=== PATIENT | male | born 1975 | race Caucasian/White ===

== ENCOUNTER 2017-02-07 10:19 | Inpatient (IN) | payer BC ==
[~2017-02-07] VITALS: Ht 193 cm; Wt 158.0 kg
[2017-02-07] MEDS ORDERED: ONDANSETRON PF 4 MG/2 ML VIAL. IV ONE ×2 (11:00→11:30)
[2017-02-07] MEDS ORDERED: PROMETHAZINE 12.5 MG in IV NORMAL SALINE 50ML 50 ML IV PRN (11:00)
[2017-02-07] MEDS ORDERED: KETOROLAC 30 MG/ML VIAL. IV ONE ×2 (11:00→11:30)
--- NOTE | 2017-02-07 11:01 | PHYS DOC ---
General Chief Complaint: HEADACHE Stated Complaint: HEADACHE Time Seen by MD: 10:44 Source: patient Exam Limitations: no limitations Problems: History of Present Illness Initial Comments Patient is a 41-year-old male who comes in the ED complaining of headache nausea vomiting. Patient states that he had a headache which has been worsening over the past few weeks. He states it seems wall started when he started taking metoprolol 50 mg and a ezetimibe 10 mg back in November. He began having intermittent headaches in the morning which would resolve quickly once he got up and active. One week ago he decided that his headaches were due to these medications and he stopped them abruptly, his headache symptoms have increased dramatically since that time. He's had nausea vomiting and by mouth intolerance this past week and the past few days headache is much worse when he is standing he also becomes dizzy and has to sit down. He has history of arachnoid cyst with shunt placement 20 years ago. He denies any prior headaches due to this. He has no history of migraines there is no associated aura he does have photophobia no focal neurologic deficits. He says the headache she's been having recently resolve if he sleeps they usually last about 6 hours the current headache has been lasting 12 hours. He says the headache started right behind his forehead and are global throbbing in nature. Patient has no history of tick bites no rash no neck stiffness and no fever chills or body aches. No recent head trauma. Timing/Duration: 1 week (worse this past week but symptom onset coincides with initiation of new meds), changing over time (9.12 her white count was 16.8) Severity: severe Modifying Factors: improves with medication, worse with movement, improves with rest Associated Symptoms: headaches, nausea/vomiting, other Allergies: Coded Allergies: No Known Drug Allergies (Unverified , 02/07/17) Past Medical History Medical History: other (hypertension, hyperlipidemia, arachnoid cyst status post shunt placement 20 years ago) Surgical History: other Social History Smoker: non-smoker Alcohol: none Drugs: marijuana Review of Systems Constitutional: denies chills, denies diaphoresis, denies fever, malaise EENTM: see HPI, denies eye pain, denies ear pain, denies ear discharge, denies nose pain, denies nose congestion, denies throat pain, denies throat swelling Respiratory: denies cough, denies shortness of breath, denies wheezing Cardiovascular: denies chest pain, denies palpitations, denies syncope Gastrointestinal: denies abdominal pain, denies diarrhea, nausea, vomiting Musculoskeletal: denies back pain, denies joint swelling, denies muscle pain, denies muscle stiffness, denies neck pain Psychiatric/Neurological: headache, denies numbness, denies paresthesia, denies pre-existing deficit, denies seizure, denies tingling, denies weakness Hematologic/Lymphatic: denies blood clots, denies easy bleeding, denies easy bruising Physical Exam General Appearance: mild distress, obese Eyes: bilateral eye normal inspection, bilateral eye PERRL, bilateral eye EOMI Ear, Nose, Throat: hearing grossly normal, normal ENT inspection (dry membranes ), normal pharynx Neck: non-tender, full range of motion, supple, other (no nuchal rigidity or meningeal signs) Respiratory: normal breath sounds, no respiratory distress Cardiovascular: normal peripheral pulses, bradycardia, other (2+ pitting lower extremity edema) Gastrointestinal: normal bowel sounds, non tender, soft, no organomegaly Back: normal inspection, no CVA tenderness, no vertebral tenderness Extremities: normal range of motion, non-tender, normal inspection Neurologic/Psychiatric: applications architect II-XII nml as tested, no motor/sensory deficits, alert, normal mood/affect, oriented x 3 Skin: normal color, warm/dry Orders, Labs, Meds EKG: Sinus bradycardia at 49 bpm, no STEMI changes. Interpreted by Dr. Hensley. PATIENT: PAUL MCKEON ACCOUNT: [id number] : 1975 LOCATION: ER AGE: 41 SEX: M EXAM STATUS: REG ER ORD. PHYSICIAN: RENAY HENSLEY DO REASON: [place], n/v, h/o arachnoid cyst/shunt PROCEDURE: CT HEAD WO CONTRAST Clinical indications: Headache with nausea and vomiting. History of shunt placement for arachnoid cyst. Comparison: None available at this facility.. Technique: Noncontrast axial cross sectional scanning of the head was performed. Findings: No acute intracranial hemorrhage or midline shift or hydrocephalus is seen. An arachnoid cyst of the inferior anterior aspect of the left middle cranial fossa is seen. This cyst measures 28 mm in greatest transverse dimension and 20 mm in greatest AP dimension. Shunt catheter and tip are located just posterior and superior to the arachnoid cyst. No other extra-axial fluid collection is seen. No focal hypodense area or sulci effacement is seen to indicate an acute infarct or edema radiographically. No skull fracture or pneumocephalus is seen. No opacification of the mastoid sinuses or the paranasal sinuses is seen. The maxillary sinuses are not completely seen in this study. Impression: No acute intracranial abnormality is seen. Arachnoid cyst of the left middle cranial fossa. PQRS Compliance Statement: One or more of the following individualized dose reduction techniques were utilized for this examination: 1. Automated exposure control 2. Adjustment of the mA and/or kV according to patient size 3. Use of iterative reconstruction technique DICTATED AND SIGNED BY: FLAKITA KRISHNAN MD DATE: 02/07/171108 CC: HAMLET KIM MD; RENAY HENSLEY DO ~ PATIENT: APUL MCKEON ACCOUNT: [id number] : 1975 LOCATION: ER AGE: 41 SEX: M EXAM STATUS: REG ER ORD. PHYSICIAN: RENAY HENSLEY DO REASON: HTN PROCEDURE: PORTABLE CHEST 1V Portable AP upright view CXR: Clinical indications: Hypertension. Comparison: None available. Findings: No acute lung infiltrate or pleural effusion or pulmonary edema or lung mass or pneumothorax is seen. The heart size, pulmonary vasculature, mediastinum and both jyoti are unremarkable. Impression: No acute radiographic abnormality is seen. DICTATED AND SIGNED BY: FLAKITA KRISHNAN MD DATE: 02/07/17 CC: HAMLET KIM MD; RENAY HENSLEY DO ~ Labs and urine studies unremarkable Through his ED course the patient received intravenous Zofran 4 mg, Pepcid 20 mg , Toradol 30 mg, and multiple doses Dilaudid intravenously. His nausea resolved with Zofran, his pain reduced from a level 10 to 4 through his ED course. Blood pressure improved with analgesia, with manual pressure 156/98 and heart rate 54. I discussed the patient with Dr. Kim and after thorough discussion of the patient's history, presentation, and ED course he recommends inpatient telemetry admission to monitor her labs and control pain. Neurology consult for intractable headache as well as cardiology consultation regarding malignant hypertension and bradycardia also requested. The patient is agreeable and wants transferred from the department at 1629 in stable condition. Impressions: Intractable headache Malignant hypertension Sinus bradycardia Nausea vomiting Departure Time of Disposition: 16:30 Disposition: 09 ADMITTED INPATIENT Condition: STABLE RENAY HENSLEY DO Feb 07, 2017 11:01
[2017-02-07 11:11] LABS: BASO # 0.1 x10^3/uL (0.0-0.2); BASO % 1 % (0-3); EOS % 0 % (0-3); HEMATOCRIT 45.4 % (39.0-53.0); HEMOGLOBIN 15.7 g/dL (13.0-17.5); LYMPH # 1.3 x10^3/uL (1.0-4.8); LYMPH % 13 % (24-48); MEAN CORPUSCULAR HEMOGLOBIN 32 pg (25-35); MEAN CORPUSCULAR HGB CONC 35 g/dL (31-37); MEAN CORPUSCULAR VOLUME 93 fL (79-100); MONO # 0.6 x10^3/uL (0.0-1.1); MONO % 6 % (0-9); NEUT # 7.9 x10^3uL (1.8-7.7); NEUT % 80 % (31-73); PLATELET COUNT 315 x10^3/uL (140-400); RED CELL DISTRIBUTION WIDTH 13.8 % (11.5-14.5); WHITE BLOOD COUNT 9.9 x10^3/uL (4.0-11.0)
[2017-02-07] MEDS: HYDROmorphone PF 1 MG/ML DISP.SYRIN IV/SQ PRN ×4 (11:13→14:36)
--- NOTE | 2017-02-07 11:17 | RAD ---
Clinical indications: Headache with nausea and vomiting. History of shunt placement for arachnoid cyst. Comparison: None available at this facility.. Technique: Noncontrast axial cross sectional scanning of the head was performed. Findings: No acute intracranial hemorrhage or midline shift or hydrocephalus is seen. An arachnoid cyst of the inferior anterior aspect of the left middle cranial fossa is seen. This cyst measures 28 mm in greatest transverse dimension and 20 mm in greatest AP dimension. Shunt catheter and tip are located just posterior and superior to the arachnoid cyst. No other extra-axial fluid collection is seen. No focal hypodense area or sulci effacement is seen to indicate an acute infarct or edema radiographically. No skull fracture or pneumocephalus is seen. No opacification of the mastoid sinuses or the paranasal sinuses is seen. The maxillary sinuses are not completely seen in this study. Impression: No acute intracranial abnormality is seen. Arachnoid cyst of the left middle cranial fossa. PQRS Compliance Statement: One or more of the following individualized dose reduction techniques were utilized for this examination: 1. Automated exposure control 2. Adjustment of the mA and/or kV according to patient size 3. Use of iterative reconstruction technique
[2017-02-07 11:20] LABS: CALCIUM 9.5 mg/dL (8.5-10.1); GFR 81.9; POTASSIUM 3.9 mmol/L (3.5-5.1)
[2017-02-07] MEDS ORDERED: FAMOTIDINE 20 MG/2 ML VIAL IVP ONE (11:30)
--- NOTE | 2017-02-07 12:32 | RAD ---
Portable AP upright view CXR: Clinical indications: Hypertension. Comparison: None available. Findings: No acute lung infiltrate or pleural effusion or pulmonary edema or lung mass or pneumothorax is seen. The heart size, pulmonary vasculature, mediastinum and both jyoti are unremarkable. Impression: No acute radiographic abnormality is seen.
[2017-02-07] MEDS ORDERED: METOPROLOL TARTRATE 5 MG/5 ML VIAL. IV ONE (12:40)
[2017-02-07] MEDS ORDERED: ASPIRIN 81 MG TAB.CHEW PO ONE (12:40)
[2017-02-07 12:47] LABS: CREATINE KINASE 68 U/L (39-308); LIPASE 86 U/L (73-393)
[2017-02-07 13:20] LABS: BARBITURATES NEG (NEG); BENZODIAZEPINES NEG (NEG); CANNABINOIDS POS (NEG); COCAINE NEG (NEG); METHADONE NEG (NEG); OPIATES POS (NEG); PHENCYCLIDINE NEG (NEG)
[2017-02-07 13:21] LABS: AMPHETAMINE/METHAMPHETAMINE NEG (NEG)
[2017-02-07 13:27] LABS: AMORPHOUS SEDIMENT,UR PRESENT /HPF; BACTERIA,URINE 0 /HPF (0-FEW); BILIRUBIN,URINE SMALL (NEG); CLARITY,URINE HAZY; COLOR,URINE AMBER; GLUCOSE,URINE NEG (NEG); NITRITE,URINE NEG (NEG); UROBILINOGEN,URINE 0.2 mg/dL (0.2 mg/dL); WBC,URINE RARE /HPF (0-4)
--- NOTE | 2017-02-07 13:57 | EKG ---
[address] [address] Test Date: 2017-02-07 Test Time: 12:21:39 Pat Name: PAUL MCKEON Department: Room: Gender: M Technology Director: QUIQUE : 1975 Requested By: RENAY HENSLEY Order Number: [id number] Reading MD: Aron Snowden MD Measurements Intervals [place] Rate: 49 P: 0 IA: 154 QRS: 2 QRSD: 86 T: 26 QT: 432 QTc: 393 Interpretive Statements SINUS BRADYCARDIA Electronically Signed On 02-10-2017 10:53:19 RO[address] MACHINE OPERATOR by Aron Snowden MD
[2017-02-07] MEDS ORDERED: NITROGLYCERIN SUBLINGUAL 0.4 MG BOTTLE OF 25. SL PRN (15:00)
[2017-02-07] MEDS ORDERED: ACETAMINOPHEN 325 MG TABLET PO PRN (15:00)
[2017-02-07 16:57] VITALS: BP 171/94
[2017-02-07] MEDS ORDERED: ENOXAPARIN 30 MG/0.3 ML DISP.SYRIN. SQ SCH ×2 (17:00→19:00)
[2017-02-07] MEDS: ONDANSETRON PF 4 MG/2 ML VIAL. IV PRN (17:04)
[2017-02-07] MEDS: MORPHINE SULFATE 4 MG/ML DISP.SYRIN. IV PRN ×2 (17:04→23:34)
[2017-02-07 17:42] VITALS: BP 171/94
--- NOTE | 2017-02-07 17:47 | NUR ---
The patient, PAUL MCKEON, 41 y/o, M admitted by HAMLET IKM MD, was given written information regarding hospital policies, unit procedures and contact persons. Valuables were checked and admission assessment performed.
[2017-02-07] MEDS: IV NORMAL SALINE 1,000ML 1,000 ML IV SCH (18:13)
[2017-02-07] MEDS ORDERED: ONDANSETRON ODT 4 MG TAB.RAPDIS PO PRN (18:30)
[2017-02-07] MEDS ORDERED: diazePAM 5 MG TABLET PO PRN (18:30)
[2017-02-07] MEDS ORDERED: hydrALAZINE 20 MG/ML VIAL. IV PRN (18:30)
[2017-02-07] MEDS ORDERED: KETOROLAC 15 MG/ML VIAL. IV PRN (18:30)
[2017-02-07 19:16] VITALS: BP 165/88
[2017-02-07] MEDS: amLODIPine BESYLATE 5 MG TABLET PO SCH (19:37)
[2017-02-07 23:01] VITALS: BP 164/93
[2017-02-08] VITALS (22 sets, daily range): BP systolic 133–199; BP diastolic 78–126
[2017-02-08 02:04] LABS: BASO % 0 % (0-3); EOS % 0 % (0-3); LYMPH # 1.3 x10^3/uL (1.0-4.8); LYMPH % 14 % (24-48); MEAN CORPUSCULAR HEMOGLOBIN 32 pg (25-35); MEAN CORPUSCULAR HGB CONC 34 g/dL (31-37); MEAN CORPUSCULAR VOLUME 93 fL (79-100); MONO # 0.7 x10^3/uL (0.0-1.1); MONO % 8 % (0-9); NEUT % 77 % (31-73); PLATELET COUNT 269 x10^3/uL (140-400); RED BLOOD COUNT 4.43 x10^6/uL (4.30-5.70); RED CELL DISTRIBUTION WIDTH 14.2 % (11.5-14.5)
[2017-02-08 02:22] LABS: ALBUMIN 3.1 g/dL (3.4-5.0); ALBUMIN/GLOBULIN RATIO 0.8 (1.0-1.7); CALCIUM 8.5 mg/dL (8.5-10.1); GFR 81.9; POTASSIUM 4.3 mmol/L (3.5-5.1); TOTAL BILIRUBIN 0.4 mg/dL (0.2-1.0); TOTAL PROTEIN 7.2 g/dL (6.4-8.2)
[2017-02-08] MEDS: IV NORMAL SALINE 1,000ML 1,000 ML IV SCH ×2 (03:27→11:02)
[2017-02-08] MEDS: ONDANSETRON PF 4 MG/2 ML VIAL. IV PRN ×2 (06:13→09:52)
[2017-02-08] MEDS ORDERED: METOPROLOL SUCC 24HR ER 50 MG TAB.ER.24H. PO SCH ×2 (09:00→21:00)
[2017-02-08] MEDS: amLODIPine BESYLATE 5 MG TABLET PO SCH (09:04)
--- NOTE | 2017-02-08 09:30 | NUR ---
Pt up to the bathroom vomiting, medication given. Addendum: 02/08/17 at 1512 by GRANT MENDOZA RN Amended: Links added.
[2017-02-08] MEDS: MORPHINE SULFATE 4 MG/ML DISP.SYRIN. IV PRN (09:52)
--- NOTE | 2017-02-08 10:30 | NUR ---
Dr. Sheikh notified of patients BP, Notified of hydralazine given. Orders given for scheduled hydralazine. see emar Addendum: 02/08/17 at 1113 by GRANT MENDOZA RN Amended: Links added.
--- NOTE | 2017-02-08 11:00 | NUR ---
Pt sitting on edge of bed, Pt c/o Headache rates pain 8/10.
--- NOTE | 2017-02-08 11:15 | NUR ---
Pt states she is still very Nauseated with a headache rating /10. Medication IV given. Addendum: 02/08/17 at 1514 by GRANT MENDOZA RN Amended: Links added.
[2017-02-08] MEDS: ENOXAPARIN 40 MG/0.4 ML DISP.SYRIN. SQ SCH ×2 (11:23→20:29)
--- NOTE | 2017-02-08 12:42 | NUR ---
Dr. Sheikh here to see pt, in room discussing BP options with patient. Addendum: 02/08/17 at 1508 by GRANT MENDOZA RN Amended: Links added.
[2017-02-08] MEDS ORDERED: ZOLPIDEM 5 MG TABLET. PO PRN (13:00)
[2017-02-08] MEDS ORDERED: CHLORTHALIDONE 25 MG TABLET PO SCH (13:00)
[2017-02-08] MEDS ORDERED: DEXAMETHASONE SOD PHOS 4 MG/ML VIAL IV ONE (13:00)
--- NOTE | 2017-02-08 13:00 | NUR ---
Pt sitting on the edge of the bed. Pt c/o head pain. rates pain 11/07 Addendum: 02/08/17 at 1507 by GRANT MENDOZA RN Amended: Links added.
[2017-02-08] MEDS: hydrALAZINE 10 MG TABLET PO SCH ×2 (13:33→21:00)
--- NOTE | 2017-02-08 14:50 | NUR ---
Pt continues to rate pain 11/07 with a headache, Pt refuses any pain medication at this time. Pt states " I am really worried about what is going on" Pt agreed to take Valium for anxiety. Addendum: 02/08/17 at 1502 by GRANT MENDOZA RN Amended: Links added.
--- NOTE | 2017-02-08 15:00 | NUR ---
Pt pushed call light on bed. RN entered the room pt sitting on the floor between bed and bathroom with IV laying over on him. Pt denies any pain from fall. Pt back to bed with RN assist. VS taken. Addendum: 02/08/17 at 1507 by GRANT MENDOZA RN Amended: Links added.
--- NOTE | 2017-02-08 15:06 | NUR ---
Consult called to Dr Bunch for intractable headache. Notified of high BPs, result of CT scan, medications given, other symptoms and patients fall. Dr Bunch suggests IV drip for BP control in ICU. This RN notified ALFONSO Cuevas caring for patient and she will notify Dr Sheikh.
[2017-02-08] MEDS ORDERED: LABETALOL 20 MG/4 ML DISP.SYRIN. IVP PRN (15:15)
--- NOTE | 2017-02-08 15:25 | NUR ---
Pt to ICU [address] [facility] room 103 via WC at this time.
--- NOTE | 2017-02-08 15:31 | HP ---
ADMIT DATE: 02/07/2017 HISTORY OF PRESENT ILLNESS: A 41-year-old male with history of a shunt because of an arachnoid cyst in his brain came, the last few weeks he has been having problems with severe intermittent headache unrelieved with numerous medications from [id number] as well as IM medications provided in the office. The patient notes the headaches feel like a throbbing pressure sensation in the frontal area of his brain. He has severe dizziness with it. The patient had an arachnoid cyst with a shunt placement 20 years ago. He denies prior headaches and this is really new for him. He has no history of migraines. He does have some blurred vision and photophobia noted with this. He notes, he says that sleeps seems to help, but when he wakes up, he still has this problem, which is behind his forehead and frontal lobe area throbbing in nature. The patient also has no neck rigidity. He denies any fever or chills. Does have some nausea, but no vomiting. PAST MEDICAL HISTORY: Other than hypertension basically past medical history for arachnoid cyst frontal lobe in 1994, shunt placement for a cyst in 1994. MEDICATIONS: Colchicine 0.6 mg p.r.n. for gout, metoprolol 25 mg b.i.d. SOCIAL HISTORY: Denies smoking or alcohol use. FAMILY HISTORY: Nonremarkable. ALLERGIES: The patient has no known drug allergies. REVIEW OF SYSTEMS: Positive for generalized fatigue, malaise, blurred vision, double vision. Denies shortness of breath. Denies chest pain. Does have some nausea and possible vomiting. Denies problems with his joints. No insect bites. Otherwise, headache as noted with pressure sensation, throbbing sensation and blurred vision. PHYSICAL EXAMINATION: GENERAL: This is a white male in moderate amount of obesity. VITAL SIGNS: Blood pressure is elevated 160/90, respiratory rate 20, pulse 60, afebrile. HEENT: The patient's head was atraumatic, normocephalic. Eyes: PERRLA without jaundice. Mouth and throat were normal. NECK: Supple without JVD or thyromegaly. LUNGS: Diminished, but clear. CARDIOVASCULAR: Regular sinus rhythm. ABDOMEN: Soft, nontender. EXTREMITIES: No clubbing, cyanosis, or edema. NEUROLOGIC: Speech is fluent, spontaneous, appropriate. Cranial nerves 2-12 grossly intact. The patient's neurological exam, [id number], [id number], alternating hand finger motion, as well as eyes were PERRLA, EOMI. Sclerae clear. LABORATORY DATA: Basically, all unremarkable as far as white count goes. Chemistries except for an elevated blood sugar slightly, elevated albumin, slightly, low at 3.1. Cardiac enzymes negative. The patient's urine was unremarkable. Toxicology positive for opiates and some marijuana, otherwise unremarkable. PLAN: Admitted for intractable headache, hypertensive urgency and make further evaluation on him as indicated given additional medication for his blood pressure and try to get; otherwise, his other situation under good control. Also, consult with Neurology. HAMLET KIM MD DR: GARCIA/ashleigh JOB#: [id number] / [id number]
--- NOTE | 2017-02-08 15:32 | NUR ---
Nursing report from ALFONSO Cuevas.
--- NOTE | 2017-02-08 15:51 | NUR ---
Dr. Sheikh at bedside.
[2017-02-08] MEDS: cloNIDine TTS-2 1 PATCH PATCH TD SCH (15:55)
--- NOTE | 2017-02-08 15:55 | NUR ---
Per Dr. Sheikh hold clonidine patch for now since pt is being started on a Nicardipine drip.
[2017-02-08] MEDS: CARVEDILOL 3.125 MG TABLET PO SCH (17:18)
[2017-02-08] MEDS: HYDROmorphone PF 2 MG/ML VIAL IV PRN ×2 (17:23→20:29)
[2017-02-09] VITALS (19 sets, daily range): BP systolic 107–165; BP diastolic 51–98
[2017-02-09] MEDS: CARVEDILOL 3.125 MG TABLET PO SCH ×2 (07:57→17:30)
[2017-02-09] MEDS: amLODIPine BESYLATE 5 MG TABLET PO SCH (09:02)
[2017-02-09] MEDS: hydrALAZINE 10 MG TABLET PO SCH ×5 (09:02→22:32)
[2017-02-09] MEDS: CHLORTHALIDONE 25 MG TABLET PO SCH (09:03)
[2017-02-09] MEDS: ENOXAPARIN 40 MG/0.4 ML DISP.SYRIN. SQ SCH ×2 (12:05→22:33)
--- NOTE | 2017-02-09 12:37 | CONS ---
DATE OF CONSULTATION: 02/08/2017 REFERRING PHYSICIAN: Dr. Sheikh. REASON FOR CONSULTATION: Severe headaches, nausea and vomiting. HISTORY OF PRESENT ILLNESS: This is a 41-year-old right-handed male, who was admitted through Emergency Room after he presented with a 1 month recurrent, severe frontal headaches associated with nausea and sometimes vomiting. The patient has had a history of ventricular shunt placement for arachnoid cyst 20 years ago. He has not had any problem until a month ago when he started having severe headaches. The patient recently was found by his primary care physicians having hypertension for which he was started on multiple antihypertensive medications and analgesics. However, the headache has been intractable to all medications and his blood pressure continues to be high. The patient states his headaches improved, but he starts having headaches when he wakes up. He describes it as a global throbbing in nature and has difficulty to turn his head up because of severe headaches. The headache is usually aggravated by standing up or by physical activities. On occasions, he complains of blurred vision as well. The symptoms have worsened in the last week. He denies any recent head injuries or fall, fever, chills, neck stiffness. The headache is usually associated with dizziness when he stands up. Initial nonenhanced head CT scan revealed an arachnoid cyst with a shunt in place without evidence of hydrocephalus or any acute intracranial process. PAST MEDICAL HISTORY: Significant for hyperlipidemia, hypertension, arachnoid cyst status post shunt placement 20 years ago. SOCIAL HISTORY: The patient is , has no children. He denies smoking, but he drinks alcohol about 8 beers daily, but he stopped drinking a week ago because of severe headaches. On occasions, he smokes marijuana. FAMILY HISTORY: Noncontributory. REVIEW OF SYSTEMS: A 10-point review of system was performed and consistent with headaches, nausea, vomiting, blurred vision, otherwise unremarkable. CURRENT MEDICATIONS: Carvedilol 3.125 mg, clonidine TTS-2 one patch weekly, labetalol 20 mg q. 2 hours p.r.n. IV for ____, hydralazine 20 mg p.o. t.i.d., Ambien 5 mg p.r.n. at bedtime for insomnia, chlorthalidone 25 mg daily, Dilaudid 2 mg q. 2 hours IV p.r.n. for headaches, Lovenox 40 mg q. 12 hours subacute, amlodipine 5 mg p.o. daily, diazepam 5 mg q. 6 hours p.r.n. for anxiety, Zofran 4 mg q. 8 hours, p.o. iron, Toradol 15 mg q. IV q. 6 hours p.r.n. and Phenergan 12.5 mg q. 6 hours p.r.n. for nausea and vomiting. ALLERGIES: No known drug allergies. PHYSICAL EXAMINATION: GENERAL: A morbidly obese white male. VITAL SIGNS: He weighs 352 pounds with a BMI of 42.9, blood pressure 165/100, earlier it was 199/105, pulse is 54, respiratory rate 18, temperature 98.5, oxygen saturation is 99% on room air. HEENT: Head is normocephalic, atraumatic, otherwise unremarkable. NECK: Supple. Negative for carotid bruit, lymphadenopathy or thyromegaly. LUNGS: Clear to A and P. CARDIOVASCULAR: Regular rate and rhythm, normal S1, S2. There is no S3, S4 or murmur. ABDOMEN: Soft. Bowel sounds positive. EXTREMITIES: Negative for cyanosis, clubbing or pitting edema. NEUROLOGICAL EXAM: Mental Status: The patient is alert and oriented x 3. The speech is fluent. There is no language dysfunction. Memory, judgment, and abstract thinking are normal. The patient denies hallucination or delusion. CRANIAL NERVES: Visual chahal are full. The pupils are reactive to light and accommodation. The extraocular movements are intact. There is no nystagmus. There is no facial motor or sensory deficit. Hearing is intact bilaterally. The palate is elevated symmetrically. Sternocleidomastoid muscles are powerful bilaterally. The patient shrugs his shoulders symmetrically and protrudes his tongue in the midline without fasciculation or atrophy. MOTOR: No focal muscle bulk was seen. The tone is normal. The strength is 5/5 throughout. Sensory examination revealed normal pinprick, light touch, vibratory and position senses. Deep tendon reflexes were symmetric and active without pathology responses. Gait: The patient declined to stand up because of severe headaches. DIAGNOSTIC: Initial nonenhanced head CT scan revealed no acute intracranial process but shows arachnoid cyst of the left middle cranial fossa with a shunt in place without evidence of hydrocephalus or shift to the midline. Chest x-ray revealed no evidence of acute cardiopulmonary process. LABORATORY DATA: CBC revealed white blood cells of 9000, hemoglobin 14, hematocrit 41, platelet count 269,000. Chemistry revealed sodium of 137, potassium 4.3, chloride 104, CO2 of 25, BUN 15, creatinine 1, glucose 143, and calcium 8.5. Troponin level less than 0.017. TSH is normal. Urinalysis is negative for urinary tract infections and urine drug screen is positive for marijuana and opiates. IMPRESSION: 1. Severe global headaches with nausea and intermittent vomiting with a normal neurological examination and a negative head CT scan. 2. Emergency hypertension may have contributed to the severe headaches. 3. Status post arachnoid cyst require shunt placement without evidence of hydrocephalus or any other acute intracranial process. 4. Rule out idiopathic intracranial hypertension/pseudotumor cerebri. RECOMMENDATIONS: 1. Treat the underlying severe hypertension. 2. Continue with current management for headaches with analgesic. 3. In case of intractable severe headaches, the patient may need a spinal tap to rule out intracranial hypertension. The spinal tap should be done under fluoroscopy, followed by anesthesiologist and measuring the opening and closing pressure during the procedure. If the opening blood pressure is high, we will remove some spinal fluid. M Wendy ZAMORA MD DR: CARLOS/ashleigh JOB#: [id number] / [id number]
[2017-02-09] MEDS: cloNIDine TTS-2 1 PATCH PATCH TD SCH (14:46)
--- NOTE | 2017-02-09 15:50 | NUR ---
Transfer to [address] [place] [address] room 103. Report given to Tim cagle, verbalized understanding.
--- NOTE | 2017-02-09 16:34 | NUR ---
Pt transferred to 103. Alert and oriented, SR on tele. Lungs clear, no complaints of pain. Pt showered. Reports BM today. Water provided, family aware of transfer. Will continue to monitor.
--- NOTE | 2017-02-10 03:45 | PN ---
DATE: 02/09/2017 SUBJECTIVE: The patient denies headaches or any new neurological complaints. His blood pressure has been under control since yesterday. He denies blurred vision, dizziness, weakness or paresthesia. OBJECTIVE: GENERAL: Obese white male, not in acute distress. He weighs 350 pounds. VITAL SIGNS: Blood pressure 130/74, respiratory rate 22, pulse is 80 and regular, temperature 97.4, oxygen saturation is 96% on 2 liters by nasal cannula. HEENT: Normocephalic, atraumatic, otherwise, unremarkable. NECK: Supple. Negative for carotid bruit, lymphadenopathy or thyromegaly. LUNGS: Clear to A and P. CARDIOVASCULAR: Regular rate and rhythm, normal S1, S2. There is no S3, S4 or murmur. ABDOMEN: Soft. Bowel sounds positive. EXTREMITIES: Negative for cyanosis, clubbing or pitting edema. NEUROLOGICAL EXAM: Mental Status: The patient is alert and oriented x 3. Speech is fluent. There is no language dysfunction. Memory, judgment and abstract thinking are normal. The patient denies hallucination or delusion. Cranial nerves are intact. No focal, motor or sensory deficit. Deep tendon reflexes are symmetric and hypoactive with absent Achilles responses. Gait and stance is steady. IMPRESSION: 1. Intractable headaches likely due to hypertension versus severe intracranial hypertension. The headaches and blood pressure has been subsided. 2. Excessive use of alcohol abuse. 3. History of hypertension. RECOMMENDATIONS: 1. Continue with current management initiated by Dr. Sheikh. 2. Alcohol cessation. 3. Aggressive weight loss. 4. The patient may need a sleep study to rule out obstructive sleep apnea, which may contribute to severe headaches. M Wendy ZAMORA MD DR: CARLOS/ashleigh JOB#: [id number] / [id number]
[2017-02-10 04:54] VITALS: BP 118/90
[2017-02-10 07:04] LABS: BASO # 0.1 x10^3/uL (0.0-0.2); BASO % 1 % (0-3); EOS # 0.1 x10^3/uL (0.0-0.7); EOS % 1 % (0-3); HEMATOCRIT 42.7 % (39.0-53.0); HEMOGLOBIN 14.9 g/dL (13.0-17.5); LYMPH # 1.6 x10^3/uL (1.0-4.8); LYMPH % 19 % (24-48); MEAN CORPUSCULAR HEMOGLOBIN 32 pg (25-35); MEAN CORPUSCULAR HGB CONC 35 g/dL (31-37); MEAN CORPUSCULAR VOLUME 92 fL (79-100); MONO # 0.9 x10^3/uL (0.0-1.1); MONO % 10 % (0-9); NEUT # 5.8 x10^3uL (1.8-7.7); NEUT % 69 % (31-73); PLATELET COUNT 292 x10^3/uL (140-400); RED BLOOD COUNT 4.65 x10^6/uL (4.30-5.70); RED CELL DISTRIBUTION WIDTH 13.9 % (11.5-14.5); WHITE BLOOD COUNT 8.4 x10^3/uL (4.0-11.0)
[2017-02-10 07:11] LABS: CALCIUM 8.5 mg/dL (8.5-10.1); CREATININE 1.1 mg/dL (0.7-1.3); GFR 73.4; POTASSIUM 3.5 mmol/L (3.5-5.1)
[2017-02-10] MEDS ORDERED: METO50TA2 (08:04)
[2017-02-10] MEDS ORDERED: ATOR20TA58 (08:04)
[2017-02-10] MEDS ORDERED: EZET10TA26 (08:04)
--- NOTE | 2017-02-10 08:20 | PN ---
DATE: 02/09/2017 SUBJECTIVE: A 41-year-old male having severe headaches, probably related to his hypertension. We transferred him to the ICU yesterday. He is stable this morning. He was placed on a Nipride drip. OBJECTIVE: VITAL SIGNS: Blood pressure down now 130/74, respiratory rate 22, pulse 80, afebrile. LUNGS: Diminished throughout, but clear. CARDIOVASCULAR: Regular sinus rhythm. ABDOMEN: Soft, nontender. The patient, otherwise, seems to be resting fairly comfortably. We will try to transfer him to the floor and make further evaluation on him as indicated there. HEENT: PERRLA, EOMI. Sclerae clear. Mouth and throat were normal. NECK: Supple. LUNGS: Clear. CARDIOVASCULAR: Regular sinus rhythm. IMPRESSION: Hypertensive urgency with severe intractable headache, arachnoid cyst, diplopia, resolved. HAMLET KIM MD DR: GARCIA/ashleigh JOB#: [id number] / [id number]
[2017-02-10] MEDS: hydrALAZINE 10 MG TABLET PO SCH (08:31)
[2017-02-10] MEDS: CHLORTHALIDONE 25 MG TABLET PO SCH (08:32)
[2017-02-10] MEDS: CARVEDILOL 3.125 MG TABLET PO SCH (08:32)
[2017-02-10] MEDS: amLODIPine BESYLATE 5 MG TABLET PO SCH (08:32)
[2017-02-10] MEDS ORDERED: ATORVASTATIN CALCIUM 20 MG TABLET PO SCH (09:00)
[2017-02-10] MEDS ORDERED: METOPROLOL TART IMMED RELEASE 50 MG TABLET PO SCH (09:00)
[2017-02-10] MEDS ORDERED: EZETIMIBE 10 MG TABLET PO SCH (09:00)
[2017-02-10] MEDS ORDERED: CARV3.122 PO (09:15)
[2017-02-10] MEDS ORDERED: DIAZ5TAB4 PO (09:15)
[2017-02-10] MEDS ORDERED: AMLO5TAB2 PO (09:15)
[2017-02-10] MEDS ORDERED: ZOLP5TAB PO (09:15)
[2017-02-10] MEDS ORDERED: METO50TA2 PO (09:15)
[2017-02-10] MEDS ORDERED: CHLO25TA PO (09:15)
[2017-02-10] MEDS ORDERED: CLON1PAT2 TD (09:15)
[2017-02-10 09:46] VITALS: BP 118/90
--- NOTE | 2017-02-10 10:40 | NUR ---
NSG NOTE; DISCHARGE VERBAL AND WRITTEN DISCHARGE INFORMATION GIVEN TO PT AND HIS WITH VERBAL UNDERSTANDING. WRITTEN RX GIVEN TO PT. DISCHARGE TO HOME VIA AMB AT 1025 ACCOMP BY
--- NOTE | 2017-02-11 08:09 | PN ---
DATE: 02/10/2017 SUBJECTIVE: The patient denies any new medical neurological complaints. He has not had any headaches in the last 24 hours. He denies nausea, vomiting, chest pain, shortness of breath, or palpitation. OBJECTIVE: GENERAL: Obese white male, not in acute distress. VITAL SIGNS: Afebrile, blood pressure 118/90, respiratory rate 16, pulse is 81 and regular, temperature is 98.2, oxygen saturation is 95% on room air. HEENT: Normocephalic, atraumatic, otherwise unremarkable. NECK: Supple. Negative for carotid bruit, lymphadenopathy, or thyromegaly. LUNGS: Clear to A and P. CARDIOVASCULAR: Regular rate and rhythm. Normal S1, S2. There is no S3, S4, or murmur. ABDOMEN: Soft. Bowel sounds positive. EXTREMITIES: Negative for cyanosis, clubbing, or pitting edema. NEUROLOGIC: Normal mental status and intact cranial nerves. There is no focal motor or sensory deficit. Deep tendon reflexes were symmetric and hypoactive with absent Achilles responses. Gait and coordination are normal. IMPRESSION: 1. Severe hypertension - resolved. 2. Severe global headaches - resolved. 3. Longstanding history of hypertension. 4. Obesity, rule out obstructive sleep apnea. RECOMMENDATIONS: 1. Continue with current management initiated by Dr. Sheikh. 2. The patient should be on antihypertensive medications. 3. The patient needs sleep study to rule out obstructive sleep apnea. 4. Aggressive weight loss. M Wendy ZAMORA MD DR: CARLOS/ashleigh JOB#: [id number] / [id number]
== END 2017-02-10 10:25 | disposition home or self-care (01) | DRG 305 ==
LOC: ER 10:19 → 1 SOUTH 15:18 → ICU 02-08 15:30 → 1 SOUTH 02-09 15:44
PROVIDERS: ADMIT Family Medicine; ATTEND Family Medicine
DX: I16.0 Hypertensive urgency (principal); E66.01 Morbid (severe) obesity due to excess calories; Z68.41 Body mass index [BMI] 40.0-44.9, adult; E78.5 Hyperlipidemia, unspecified; F10.10 Alcohol abuse, uncomplicated; G47.33 Obstructive sleep apnea (adult) (pediatric); F12.90 Cannabis use, unspecified, uncomplicated; H53.2 Diplopia; R00.1 Bradycardia, unspecified; G47.00 Insomnia, unspecified; F41.9 Anxiety disorder, unspecified; I10 Essential (primary) hypertension; Z79.899 Other long term (current) drug therapy; Z86.69 Personal history of other diseases of the nervous system and sense organs; Z98.2 Presence of cerebrospinal fluid drainage device
CPT/HCPCS: 36415; 70450; 71010; 80048; 80053; 80307; 81001; 82550; 83605; 83690; 83880; 84443; 84484; 85025; 85379; 87641; 93005; 96374; 96375; 96376; J0360; J1100; J1170; J1650; J1885; J2270; J2405; J2550; J7050; S0028; 99285-25; G0479; J7030